=== PATIENT | female | born 1995 | race African-American/Black ===

== ENCOUNTER 2019-05-04 10:57 | Emergency (ER) | payer SELFPAY ==
[2019-05-04 11:01] VITALS: BP 135/81; PULSE 85; RESP 16; TEMP 36.6; O2SAT 100
--- NOTE | 2019-05-04 11:16 | ED.NAVMDI ---
HPI - Nausea/Vomiting/Diarrhea General Chief complaint: Nausea/Vomiting/Diarrhea Stated complaint: Emesis x 2 today Time Seen by Provider: 05/04/19 11:15 Source: patient and RN notes reviewed Mode of arrival: ambulatory Limitations: no limitations History of Present Illness HPI Narrative: A 24 y/o female presents to the ED with N/V/D beginning today. She states that she has had 2 episodes of vomiting and 2 episodes of diarrhea today. She reports associated rhinorrhea, S[place], body aches, and chills. She notes that her LNMP was 2 days ago. She denies any fevers, sweats, cough, sore throat, ABD pain, dysuria, frequent urination, or hematuria. MD elicited complaint: nausea, vomiting and diarrhea Onset (ago): hour(s) (today) Associated nausea: Yes Associated abdominal pain: No Location of pain: none Associated symptoms: fever/chills (no fever), headaches and other (rhinorrhea, body aches) Related Data Allergies Allergy/AdvReac Type Severity Reaction Status Date / Time No Known Allergies Allergy Verified 05/04/19 13:03 Review of Systems Review of Systems: All systems reviewed & are unremarkable except as noted in HPI and below Constitutional: Constitutional: Reports body ache(s), Reports chills, Denies fever(s) and Denies other (sweats) ENT: Reports nasal discharge and Denies sore throat Respiratory: Respiratory: Denies cough Gastrointestinal: Gastrointestinal: Denies abdominal pain, Reports diarrhea (x2), Reports nausea and Reports vomiting (x2) Genitourinary: Genitourinary: Denies hematuria, Denies nocturia and Denies dysuria Neurologic: Reports headache(s) [facility], [facility] Past Medical History Medical History (Updated 05/04/19 @ 13:03 by Rufina Rush MD) Healthy female Surgical History Surgical History (Updated 05/04/19 @ 12:13 by José Hays) No history of previous surgery Social History Social History (Updated 05/04/19 @ 12:13 by José Hays) Smoking status: Light tobacco smoker Tobacco type: cigars Exam Const: General: cooperative, healthy appearing, no acute distress and alert Nutritional Appearance: obese Orientation/consciousness: patient oriented x3 Limitations: no limitations HENMT: Mouth: Yes lip normal and Yes moist mucous membranes Resp: Effort & Inspection: normal respiratory effort Auscultation: clear to auscultation bilaterally Cardio: Rate: regular rate Rhythm: regular rhythm GI: GI Palp: Yes Soft to palpation and No Tenderness to palpation present (GI) Auscultation: normal bowel sounds Back/Spine/Pelvis: Back: CVA tenderness (THERESA) Skin: General skin exam: normal color Neuro: General: patient oriented x3 Cognition (Neuro): normal cognition Speech: normal speech Extrem: General: normal to inspection, full ROM and no clubbing, cyanosis or edema Psych: Mental Status: mental status grossly normal Affect: Other affect and mood findings present (flat affect) Attitude: cooperative Course Course Emergency Course: Patient given IV fluids and antiemetics. Advised diagnosis of viral syndrome. Labs unremarkable. Vital Signs Vital signs: Vital Signs Temperature 97.8 F 05/04/19 11:01 Pulse Rate 85 05/04/19 11:01 Respiratory Rate 16 05/04/19 11:01 Blood Pressure 135/81 05/04/19 11:01 Pulse Oximetry 100 05/04/19 11:01 Temperature 97.8 F 05/04/19 11:01 Pulse Rate 85 05/04/19 11:01 Respiratory Rate 16 05/04/19 11:01 Blood Pressure 135/81 05/04/19 11:01 Pulse Oximetry 100 05/04/19 11:01 MDM - Nausea/Vomiting/Diarrhea Lab Data Attestation: I reviewed the patient's lab results. Result diagrams: 05/04/19 11:36 05/04/19 11:36 Labs: Lab Results 05/04/19 05/04/19 05/04/19 Range/Units 11:36 11:36 11:36 WBC 8.4 (4.5-10.0) K/mm3 RBC 3.87 L (4.2-5.4) M/mm3 Hgb 10.5 L (12.0-15.0) g/dL Hct 35.2 L (37.0-47.0) % MCV 91.0 (80-100) fl MCH 27.1 (26-34) pg MCHC 29.8 L (32-36) g/dl RD
[2019-05-04] MEDS: LACTATED RINGERS 1,000 ML 999 ML IV CONT (11:35)
[2019-05-04] MEDS: ONDANSETRON INJ 4 MG/2 ML VIAL IV PUSH (11:35)
[2019-05-04 11:49] LABS: Basophils Percent Auto 0.4 % (0.2-1.2); Eosinophils Percent Auto 0.5 % (0-4.4); Hematocrit 35.2 % (37.0-47.0); Hemoglobin 10.5 g/dL (12.0-15.0); Immature Granulocyte Absolute 0.04 K/mm3 (0.00-0.031); Immature Granulocyte Percent A 0.5 % (0-0.5); Lymphocytes Absolute Auto 0.92 K/mm3 (0.9-3.2); Mean Corpuscular HGB Conc 29.8 g/dl (32-36); Mean Corpuscular Hemoglobin 27.1 pg (26-34); Monocytes Absolute Auto 0.5 K/mm3 (0.1-0.6); Monocytes Percent Auto 5.7 % (2.6-8.5); Neutrophils Absolute Auto 6.9 K/mm3 (1.3-6.7); Neutrophils Percent Auto 81.9 % (45.5-73.1); Platelet Count Result 233 k/mm3 (150-375); Red Blood Count 3.87 M/mm3 (4.2-5.4); Red Cell Distribution Width 14.3 % (11.5-14.5); White Blood Count 8.4 K/mm3 (4.5-10.0)
[2019-05-04 12:02] LABS: Alanine Aminotransferase 13 U/L (4-35); Albumin Level 4.5 g/dL (3.5-5.1); Alkaline Phosphatase 76 U/L (38-126); Aspartate Amino Transferase 25 U/L (14-36); Bilirubin,Total 0.2 mg/dL (0.2-1.3); Blood Urea Nitrogen 19 mg/dL (7-17); Calcium 9.1 mg/dL (8.4-10.2); Carbon Dioxide 26 mmol/L (22-30); Chloride 106 mmol/L (98-107); Estimated CRCL calculation 135 ml/min; Estimated Glomerular Filt Rate > 60; Glucose 92 mg/dL (65-105); Potassium 4.1 mmol/L (3.4-5.0); Sodium 142 mmol/L (137-145)
[2019-05-04 12:04] LABS: Add Urine Microscopic? YES; Appearance Urine Cloudy (Clear); Bacteria Urine Trace /hpf; Bilirubin Urine Negative (Negative); Blood Urine 1+ (Negative); Calcium Oxalate Crystals Urine Many /hpf; Color Urine Yellow (Yellow); Glucose Urine UA Negative (Negative); Ketones Urine Negative (Negative); Leukocyte Esterase Ur 1+ LEU/UL (Negative); Mucus Urine Heavy /lpf; Nitrate Urine Negative (Negative); Protein Urine 1+ mg/dL (Negative); Squamous Epithelial Cell Urine Many /hpf (Few); Urobilinogen Urine Negative mg/dL (<2.0)
--- NOTE | 2019-05-09 07:54 | PC.NURSE ---
LATE ENTRY This note is being entered to document information to the patient's record. The following information was omitted on [05/04/19]. lr bolus infused at 1235
== END 2019-05-04 13:45 | disposition home or self-care (01) ==
PROVIDERS: Emergency Provider Emergency Medicine
DX: K52.9 Noninfective gastroenteritis and colitis, unspecified (principal); F17.290 Nicotine dependence, other tobacco product, uncomplicated
CPT/HCPCS: 36415; 80053; 81001; 81025; 85025; 87086; 87088; 96361; 96374; 99284; J2405; J7120